=== PATIENT | female | born 1955 | race Caucasian/White ===

== ENCOUNTER 2016-11-23 14:38 | Emergency (ER) | payer OTHER ==
[2016-11-23 14:39] VITALS: BMI 21.7
[2016-11-23 16:42] LABS: ADD MANUAL DIFF? NO
[2016-11-23 16:48] LABS: BASO # 0.05 K/mm3 (0.0-2.0); BASO % 0.3 % (0.0-3.0); EOS # 0.3 (0.0-0.7); EOS % 1.9 % (1.5-5.0); GRAN # 11.63 (1.4-6.5); GRAN % 77.8 % (50.0-68.0); HEMATOCRIT 38.1 % (36.0-48.0); MEAN CELL VOLUME 91.8 fL (80.0-105.0); MEAN CORPUSCULAR HEMOGLOBIN 30.6 pg (25.0-35.0); MEAN CORPUSCULAR HGB CONC 33.3 g/dl (31.0-37.0); MEAN PLATELET VOLUME 9.3 fl (7.0-11.0); MONO # 1.1 (0.1-0.6); PLATELET COUNT 270 10^3/uL (120.0-450.0); RED CELL DISTRIBUTION WIDTH 13.9 % (11.5-14.5)
[2016-11-23 16:51] LABS: VENOUS BLOOD GAS BASE EXCESS 4.8 mmol/L (0.0-2.0); VENOUS BLOOD PH 7.34 (7.32-7.43)
--- NOTE | 2016-11-23 16:54 | RAD ---
HISTORY: cough r/o pna COMPARISON: Comparison chest 04/01/2015 TECHNIQUE: Chest PA and lateral FINDINGS: LUNGS: No acute consolidation. Questionable vessel on end artifact versus small granuloma right upper lobe which appears essentially unchanged from prior exam PLEURA: No significant pleural effusion identified. No pneumothorax apparent. CARDIOVASCULAR: Minor calcified atherosclerotic plaque seen along the aortic knob. Heart size within range of normal. OSSEOUS STRUCTURES: Mild multilevel degenerative spondylosis of the thoracic spine VISUALIZED UPPER ABDOMEN: Normal. OTHER FINDINGS: None. IMPRESSION: No acute cardiopulmonary disease. Questionable vessel on end artifact versus small granuloma right upper lobe which appears essentially unchanged from prior exam
[2016-11-23 16:57] LABS: ALB/GLOB RATIO 1.2 (1.1-1.8); ALKALINE PHOSPHATASE 64 U/L (38-133); ALT/SGPT 39 U/L (7-56); AST/SGOT 25 U/L (15-39); BILIRUBIN,TOTAL 0.5 mg/dL (0.2-1.3); BLOOD UREA NITROGEN 8 mg/dL (7-21); CALCIUM 9.4 mg/dL (8.4-10.5); CARBON DIOXIDE 29 mmol/L (21-33); CHLORIDE 100 mmol/L (98-107); GFR AFRICAN-AMERICAN > 60; GLUCOSE,RANDOM 96 mg/dL (70-110); POTASSIUM 4.1 mmol/L (3.6-5.0); SODIUM 138 mmol/L (132-148); TOTAL PROTEIN 7.5 g/dL (5.8-8.3)
[2016-11-23 17:02] VITALS: BP 132/75; PULSE 69; TEMP 98.4
[2016-11-23 17:36] LABS: PH,URINE 6.5 (4.7-8.0); URINE APPEARANCE CLEAR (CLEAR); URINE BILIRUBIN NEGATIVE (NEGATIVE); URINE BLOOD NEGATIVE (NEGATIVE); URINE COLOR YELLOW (YELLOW); URINE GLUCOSE (UA) NEGATIVE (NEGATIVE); URINE KETONE NEGATIVE (NEGATIVE); URINE LEUKOCYTE ESTERASE NEGATIVE Leu/uL (NEGATIVE); URINE PROTEIN NEGATIVE mg/dL (<30 mg/dL); URINE UROBILINOGEN 0.2 E.U./dL (<1 E.U./dL)
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
[2016-11-23 18:00] VITALS: RESP 16; O2SAT 99
== END 2016-11-23 18:00 | disposition home or self-care (01) ==
LOC: ED 14:38
DX: R09.81 Nasal congestion (principal); B34.9 Viral infection, unspecified; D72.829 Elevated white blood cell count, unspecified

== ENCOUNTER 2017-05-19 13:18 | Emergency (ER) | payer OTHER ==
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
[2017-05-19 13:23] VITALS: BMI 21.4
[2017-05-19 13:26] VITALS: PULSE 60; RESP 18; TEMP 97.9; O2SAT 98
--- NOTE | 2017-05-19 15:04 | RAD ---
PROCEDURE: Radiographs of the right humerus. HISTORY: rt. proximal 1/3 humeral pain x 1 week COMPARISON: None. FINDINGS: BONES: Normal. No fracture or focal lesion. SOFT TISSUES: Normal. OTHER FINDINGS: None. IMPRESSION: Normal radiographs of right humerus.
[2017-05-19 15:48] VITALS: BP 173/83
--- NOTE | 2017-05-19 16:01 | US ---
PROCEDURE: Right upper extremity venous US CLINICAL HISTORY: Arm pain and swelling Evaluate for deep venous thrombosis. PHYSICIAN(S): Emigdio Acosta M.D FINDINGS: The visualized rightinternal jugular vein is sonographically normal and compressible. No evidence of obstruction or thrombus is seen. The visualized segments of the right subclavian vein are patent with normal waveforms. No sonographic evidence of obstruction or thrombosis is seen. The visualized deep venous system of the proximal right upper extremity is sonographically normal and compressible. IMPRESSION: 1. No sonographic evidence for deep venous thrombosis in the visualized segments of the right upper extremity.
== END 2017-05-19 15:30 | disposition home or self-care (01) ==
LOC: ED 13:18
DX: B35.4 Tinea corporis (principal); M79.601 Pain in right arm

== ENCOUNTER 2018-05-17 15:59 | Emergency (ER) | payer MEDICARE, OTHER ==
[2018-05-17 16:01] VITALS: BMI 21.4
[2018-05-17] MEDS ORDERED: Sodium Chloride 0.9% 500 ML IV STA (16:59)
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
[2018-05-17 17:09] LABS: URINE APPEARANCE CLEAR (CLEAR); URINE BILIRUBIN NEGATIVE (NEGATIVE); URINE COLOR YELLOW (YELLOW); URINE GLUCOSE (UA) NEGATIVE (NEGATIVE)
[2018-05-17 17:10] LABS: URINE BLOOD NEGATIVE (NEGATIVE); URINE LEUKOCYTE ESTERASE NEGATIVE Leu/uL (NEGATIVE); URINE PROTEIN NEGATIVE mg/dL (<30 mg/dL); URINE UROBILINOGEN 0.2 E.U./dL (<1 E.U./dL)
[2018-05-17 17:43] LABS: BASO # 0.03 K/mm3 (0.0-2.0); BASO % 0.4 % (0.0-3.0); EOS # 0.3 (0.0-0.7); EOS % 4.5 % (1.5-5.0); GRAN # 4.44 (1.4-6.5); GRAN % 60.3 % (50.0-68.0); HEMOGLOBIN 12.3 g/dL (12.0-16.0); LYMPH % 26.7 % (22.0-35.0); MEAN CORPUSCULAR HEMOGLOBIN 29.5 pg (25.0-35.0); MEAN CORPUSCULAR HGB CONC 33.2 g/dl (31.0-37.0); MEAN PLATELET VOLUME 9.8 fl (7.0-11.0); MONO # 0.6 (0.1-0.6); MONO % 8.1 % (1.0-6.0); RBC 4.17 10^6/uL (3.5-6.1); RED CELL DISTRIBUTION WIDTH 13.6 % (11.5-14.5); WHITE BLOOD COUNT 7.4 10^3/ul (4.5-11.0)
[2018-05-17 17:44] VITALS: TEMP 98
[2018-05-17 19:20] LABS: ALB/GLOB RATIO 1.2 (1.1-1.8); ALBUMIN 4.5 g/dL (3.0-4.8); ALT/SGPT 21 U/L (7-56); AST/SGOT 34 U/L (14-36); BLOOD UREA NITROGEN 10 mg/dL (7-21); CALCIUM 10.2 mg/dL (8.4-10.5); GFR NON-AFRICAN AMERICAN > 60; LIPASE 135 U/L (23-300)
--- NOTE | 2018-05-17 19:28 | ED PDOC ---
Physical Exam Vital Signs Reviewed: Yes Vital Signs Temp Pulse Resp BP Pulse Ox 05/17/18 17:39 98 F 85 18 96 05/17/18 16:11 97.8 F 63 16 150/83 95 Temperature: Afebrile Blood Pressure: Normal Pulse: Regular Respiratory Rate: Normal Appearance: Positive for: Well-Appearing, Non-Toxic, Comfortable Pain Distress: None Mental Status: Positive for: Alert and Oriented X 3 - Systems Exam Head: Present: Atraumatic, Normocephalic Pupils: Present: PERRL Extroacular Muscles: Present: EOMI Conjunctiva: Present: Normal Mouth: Present: Moist Mucous Membranes Neck: Present: Normal Range of Motion Respiratory/Chest: Present: Clear to Auscultation, Good Air Exchange. No: Respiratory Distress, Accessory Muscle Use Cardiovascular: Present: Regular Rate and Rhythm, Normal S1, S2. No: Murmurs Abdomen: No: Tenderness, Distention, Peritoneal Signs Back: Present: Normal Inspection Upper Extremity: Present: Normal Inspection. No: Cyanosis, Edema Lower Extremity: Present: Normal Inspection. No: Edema Neurological: Present: GCS=15, CN II-XII Intact, Speech Normal Skin: Present: Warm, Dry, Normal Color. No: Rashes Psychiatric: Present: Alert, Oriented x 3, Normal Insight, Normal Concentration Medical Decision Making ED Course and Treatment: 05/17/18 19:26 Case endorsed to me by Dr. Yanez, pending chemistry and anticipated d/c. - Lab Interpretations Lab Results: 05/17/18 17:30 05/17/18 18:35 Lab Results 05/17/18 18:35: Sodium 141, Potassium 3.9, Chloride 102, Carbon Dioxide 31, Anion Gap 13, BUN 10, Creatinine 0.6 L, Est GFR ( Amer) > 60, Est GFR (Non-Af Amer) > 60, Random Glucose 91, Calcium 10.2, Magnesium 2.0, Total B ilirubin 0.2, AST 34, ALT 21, Alkaline Phosphatase 75, Total Protein 8.1, Albumin 4.5, Globulin 3.7, Albumin/Globulin Ratio 1.2, Lipase 135 05/17/18 17:30: WBC 7.4 D, RBC 4.17, Hgb 12.3, Hct 37.1, MCV 89.0, MCH 29.5, MCHC 33.2, RDW 13.6, Plt Count 284, MPV 9.8, Gran % 60.3, Lymph % (Auto) 26.7, Tucker % (Auto) 8.1 H, Eos % (Auto) 4.5, Baso % (Auto) 0.4, Gran # 4.44, Lymph # (Auto) 2.0, Tucker # (Auto) 0.6, Eos # (Auto) 0.3, Baso # (Auto) 0.03 05/17/18 16:30: Urine Color Yellow, Urine Appearance Clear, Urine pH 6.0, Ur Specific [place] < 1.005 L, Urine Protein Negative, Urine Glucose (UA) Negative, Urine Ketones Negative, Urine Blood Negative, Urine Nitrate Negative, Urine Bilirubin Negative, Urine Urobilinogen 0.2, Ur Leukocyte Esterase Negative - RAD Interpretation Radiology Orders: 05/17/18 16:59 obstructive series [ABD 2 VIEWS (FLAT/UP OR DECUB)] [RAD] Stat - Medication Orders Current Medication Orders: Discontinued Medications Sodium Chloride (Sodium Chloride 0.9%) 500 mls @ 999 mls/hr IV .Q31M STA Stop: 05/17/18 17:29 Last Admin: 05/17/18 18:50 Dose: 999 mls/hr eMAR Start Stop Document 05/17/18 18:50 GMI (Rec: 05/17/18 18:50 GMI [facility] [id number]) Intravenous Solution Start Date 05/17/18 Start Time 18:50 - Scribe Statement The provider has reviewed the documentation as recorded by the Scribe Kasey Christian All medical record entries made by the Scribkina were at my direction and personally dictated by me. I have reviewed the chart and agree that the record accurately reflects my personal performance of the history, physical exam, medical decision making, and the department course for this patient. I have also personally directed, reviewed, and agree with the discharge instructions and disposition. Disposition/Present on Arrival - Present on Arrival Any Indicators Present on Arrival: No History of DVT/PE: No History of Uncontrolled Diabetes: No Urinary Catheter: No History of Decub. Ulcer: No History Surgical Site Infection Following: None - Disposition Have Diagnosis and Disposition been Completed?: Yes Diagnosis: Vomiting Disposition: HOME/ ROUTINE Disposition Time: 21:31 Patient Problems: Current Active Problems Problem Status Onset Vomiting Acute Condition: STABLE Discharge Instructions (ExitCare): Nausea and Vomiting, Adult (DC) Additional Instructions: Return for any new or worsening symptoms. Keep your appointment with the outside deliverer. RAJINDER DE LA ROSA, thank you for letting us take care of you today. Your provider was Dr. Ranjit Yanez and you were treated for vomiting. The emergency medical care you received today was directed at your acute symptoms. If you were prescribed any medication, please fill it and take as directed. It may take several days for your symptoms to resolve. Return to the Emergency Department if your symptoms worsen, do not improve, or if you have any other problems. Please contact your doctor or call one of the physicians/clinics you have been referred to that are listed on the Patient Visit Information form that is included in your discharge packet. Bring any paperwork you were given at discharge with you along with any medications you are taking to your follow up visit. Our treatment cannot replace ongoing medical care by a primary care provider outside of the emergency department. Thank you for allowing the [facility] team to be part of your care today. If you had an X-Ray or CT scan: A Radiologist will review the ED reading if any change in treatment is needed we will contact you. If you had a blood, urine, or wound culture: It will take several days for the results, if any change in treatment is needed we will contact you. If you had an STI test: It will take 48 hours for the results. Please call after 1 week if you have not heard back. Prescriptions: Omeprazole Magnesium [Prilosec Otc] 20 mg PO DAILY 14 Days #14 tablet. Ondansetron [Zofran] 4 mg PO Q8H #12 tab Referrals: Beau Diaz JD, MD [Primary Care Provider] - Follow up with primary Forms: [employer] (Belarusian)
[2018-05-17 19:39] VITALS: RESP 19; O2SAT 99
[2018-05-17 21:41] VITALS: BP 123/57; PULSE 76
--- NOTE | 2018-05-18 09:50 | RAD ---
Date of service: 05/17/2018 HISTORY: vomiting COMPARISON: No prior. FINDINGS: BOWEL: Normal. No obstruction. No free air. BONES: Normal. OTHER FINDINGS: None. IMPRESSION: No active disease.
--- NOTE | 2018-05-18 12:59 | CARD ---
APPROVED REPORT Date of service: 05/17/2018 EKG Measurement Heart [id number] <Conclusion> Normal sinus rhythm Normal ECG
== END 2018-05-17 21:41 | disposition home or self-care (01) ==
LOC: ED 15:59
DX: R11.10 Vomiting, unspecified (principal)
CPT/HCPCS: 74019; 80053; 81003; 83690; 83735; 85025; 93005; 99285; J7040